=== PATIENT | male | born 1990 | race African-American/Black ===

== ENCOUNTER 2019-12-24 10:48 | Emergency (ER) | payer OTHER, SELFPAY ==
[2019-12-24 10:49] VITALS: BP 118/77; PULSE 103; PULSE 105; RESP 15; RESP 16; TEMP 36.7; O2SAT 97; BMI 22.1
[2019-12-24 10:50] VITALS: BP 118/77; PULSE 105; RESP 15; TEMP 36.7; O2SAT 97; BMI 22.1
--- NOTE | 2019-12-24 11:06 | ED.DCSUM_ITS ---
History of Present Illness Chief Complaint: Back Informant: Patient Onset: Yesterday, Hours Current Severity: Moderate Maximum Severity: Moderate Narrative: Patient presents secondary to mid back pain. 2 days ago he was trying to lift a small freezer. The following day he noted tightness in his back, worse to the right side. Pain is worse with movement and jarring motion. He denies pain rating to his legs or arms. He has not taken anything for pain. He denies history of back problems. - Past Medical History (1) Asthma Status: Chronic (2) Jaw fracture Status: Resolved Past Medical History - Allergies and Home Meds Allergies/Adverse Reactions: Allergies No Known Allergies Allergy (Verified 12/24/19 10:48) Primary Care Physician: Nawaf Elkins MD [Primary Care Provider] - Prior records reviewed: Yes Smoking Status: Current every day smoker Review of Systems General: Denies: Chills, Fever Eyes: Denies: Visual changes - bilaterally ENT: Denies: Bilateral ear pain Cardiovascular: Denies: Chest pain Respiratory: Denies: Dyspnea, Cough Gastrointestinal: Denies: Abdominal pain, Nausea, Vomiting, Diarrhea Genitourinary: Denies: Dysuria Musculoskeletal: Reports: Back pain. Denies: Extremity Pain Skin: Denies: Rash Neurological: Denies: Headache, Weakness Hematologic: Denies: Easy bruising Physical Exam Vital Signs/Narrative: Vital Signs Temp Pulse Resp BP Pulse Ox 12/24/19 10:50 98.0 F 105 H 15 118/77 97 12/24/19 10:49 98.0 F 103 H 15 118/77 97 Inital Vital Signs reviewed: Yes General: Well nourished, Well developed Head: Normocephalic ENT: Moist mucous membranes Neck: Supple Cardiovascular: Regular rate, Regular rhythm Respiratory: No distress, CTA bilaterally Abdomen: Soft, Nontender Back: - - Mild tenderness in the low thoracic, upper lumbar paraspinal muscles, right greater than left. No midline tenderness. No skin changes. Extremities: Nontender Skin: Normal color, No rash Neurological: Alert, Oriented x3, Normal Strength, Normal Sensation Psychological: Normal affect Diagnostic/Tx/Re-eval - Medical Decision Making Patient be treated with naproxen and Flexeril, first doses given here. He will be given a work note for today. He is to follow-up with PCP if not improving. ED Disposition - Plan for ED Patient: Disposition: Home or Assisted Living Diagnosis: Back strain Instructions: ED Back Pain Acute or Chronic Prescriptions: cycloBENZAPRine HCl [Flexeril] 10 mg PO TID PRN #20 tab PRN Reason: Muscle Spasm [id number] Naproxen [Naprosyn] 500 mg PO BID PRN PRN #20 tab PRN Reason: Pain Score 4-10/10 Transmission Status: P[facility] to [id number] Referrals: Nawaf Elkins MD [Primary Care Provider] - 1 Week if not improving
[2019-12-24] MEDS: Naproxen 500 MG Tablet PO (11:23)
[2019-12-24] MEDS: cycloBENZAPRine HCl 10 MG Tablet PO (11:23)
== END 2019-12-24 11:27 | disposition home or self-care (01) ==
LOC: ED 11:25
PROVIDERS: Emergency Provider Emergency Medicine
DX: S39.012A Strain of muscle, fascia and tendon of lower back, initial encounter (principal); F17.200 Nicotine dependence, unspecified, uncomplicated; X50.0XXA Overexertion from strenuous movement or load, initial encounter
CPT/HCPCS: 99283